=== PATIENT | female | born 1935 | race Caucasian/White ===

== ENCOUNTER 2016-10-31 17:10 | Observation (INO) | payer MEDICARE, OTHER ==
[~2016-10-31] VITALS: Ht 167.6 cm; Wt 58.3 kg
--- NOTE | ~2016-10-31 | HP ---
History And Physical [place] [id number] [facility] [place]. [address] NAME: MONY VILLA : 33 STATUS : ADM Donell PAT#: [id number] AGE: 81 ADM/REG DATE : 10/31/16 MR#: [id number] REPORT SERV DATE: 11/01/16 DICTATED BY: CHRISTIAN TAYLOR DATE: 11/01/16 REPORT STATUS : Draft TRANSCRIBED BY: MODL DATE: 11/01/16 DATE OF ADMISSION: 10/31/2016 ADDENDUM: PAST MEDICAL HISTORY: 1. In addition to the coronary artery disease status post PCI to LAD in 1988, she also has sick sinus syndrome with history of atrial fibrillation and is status post a pacemaker along with a pacemaker battery change. 2. Labile blood pressure. 3. Severe dementia. 4. Recurrent UTIs. Daughter denies any history of congestive heart failure or GI bleed. She denies any history of liver function test elevation or abdominal pathology. REVIEW OF SYSTEMS: All obtained through the [employer], jose Valerie. The patient has been sleeping all day. More confused compared to baseline dementia, possibly hallucinating as the daughter thinks her talks for friend peggy [place]. Feet swelling and coughing. No shortness of breath. No chest pain. No palpitations. No complaints of heart racing per the daughter. The daughter is unsure why the patient was never placed on anticoagulant by her information security manager. She has not seen a information security manager in some time. Her information security manager is Dr. Barraza. The patient is fairly debilitated. As above per HPI, all other systems reviewed and negative. SOCIAL HISTORY: She is . She has three children, two daughters and one son. She has a Power of Production Mechan[employer], daughter Valerie. Other daughter is active as well. She denies any tobacco. She tells me she drinks about one glass of wine a couple of times a month. She tells me she lives alone in her own home. However, her daughter clarified afterwards that [facility] six months [facility] and is living there. She tells me that she is very active and that she is a runner; however, the daughter tells me that she did use to run when she was younger, but does not do any exercise at this time. The patient tells me about her friend King Marcia that brought her into the hospital to be funny. The daughter tells me that she feels that this is unreal and possibly a hallucination. FAMILY HISTORY: Noncontributory secondary to age. ALLERGIES: MORPHINE, UNKNOWN REACTION; CODEINE, UNKNOWN REACTION. HOME MEDICATIONS: List was obtained from the facility. The patient states she does not take any medications. However, per the facility, the patient is receiving the followin. Aspirin 81 mg p.o. every morning. 2. Atorvastatin 40 mg p.o. every evening. 3. Ativan 0.5 mg p.o. twice per day as needed for agitation. 4. Losartan 100 mg p.o. every morning. History And Physical [address] [address] NAME: MONY VILLA : 33 STATUS : ADM Donell PAT#: [id number] AGE: 81 ADM/REG DATE : 10/31/16 MR#: [id number] REPORT SERV DATE: 11/01/16 DICTATED BY: CHRISTIAN TAYLOR DATE: 11/01/16 REPORT STATUS : Draft TRANSCRIBED BY: VALDO DATE: 11/01/16 5. Namenda XR 28 mg p.o. every morning. 6. Lopressor 50 mg p.o. b.i.d. 7. Macrodantin 100 mg p.o. every morning, maintenance preventative therapy given recurrent UTIs per [facility]. 8. Exelon patch 9.5 mg patch applied topically every morning (please note, I see this patches in place on her back at this time. 9. Trazodone 150 mg p.o. at bedtime. PHYSICAL EXAMINATION: VITAL SIGNS: Oxygen saturation 95% on room air. Weight 59.59 kg. Temperature 97.7, pulse 96, respiratory rate 18, and blood pressure 103/62. GENERAL: Well-developed, well-nourished. Agitated. HEENT: Head normocephalic. No xanthelasma. Sclera clear, anicteric. Moist mucous membranes without pallor. No lymphadenopathy. No deficits noted. NECK: Trachea midline. Supple. No thyromegaly, JVD, or bruits. RESPIRATORY: Unlabored respirations. Breath sounds clear bilaterally to posterior auscultation. No wheezes, rhonchi or crackles. CARDIOVASCULAR: Permanent pacemaker noted on the left chest wall. No murmur, rub, or gallop appreciated. Regular rate with irregular rhythm. No chest wall tenderness to palpation. ABDOMEN: Soft, nontender, and nondistended. Active bowel sounds auscultated x4 quadrants. No organomegaly and no masses. No aortic bruit. EXTREMITIES: DP/PT and radial pulses 2+ bilaterally. 1 to 2+ nonpitting edema noted in bilateral lower ankles. SKIN: Warm, dry, intact. No rash. Normal turgor. MUSCULOSKELETAL: Moves all extremities in bed without difficulty. NEURO/PSYCH: The patient is currently agitated. She is oriented to name and date of , otherwise she is disoriented to place, time, the president, where she lives, why she is in the hospital, what activity she normally does, etc. She is unable to provide much medical history. Again, affect is agitated. LABORATORY DATA: BMP: Sodium 139, potassium 4, chloride 107, BUN 26, creatinine 0.87, GFR 71, glucose 89, calcium 8.8, and magnesium 1.7. CBC: WBC 10.3, hemoglobin 16.2, hematocrit 47.8, and platelets 141. INR 1.2. Alkaline phosphatase 194 (elevated), ALT elevated at 102 (was normal at 34, last time checked in October 2014), AST is also elevated at 42. TSH 3.83 with a normal free T4. Troponin is less than 0.02 x2. STUDIES: Chest x-ray; left greater than right bibasilar atelectasis. Small left pleural effusion. Progressive cardiomegaly with a permanent pacemaker in place. EKGs personally interpreted x3; first with atrial fibrillation with RVR with variable AV block with anterolateral ischemia rate of 152 with an incomplete right bundle branch block. The second EKG; atrial fibrillation with frequent V pacing with T-wave inversions anterolateral. Third; V paced rate 82. Telemetry: Atrial fibrillation with frequent ventricular pacing, rate 90s to one teens. The patient is currently being infused with heparin drip and a Cardizem drip. History And Physical [address] [place]. [address] NAME: ALLENMONY LAI : 33 STATUS : ADM Donell PAT#: [id number] AGE: 81 ADM/REG DATE : 10/31/16 MR#: [id number] REPORT SERV DATE: 11/01/16 DICTATED BY: CHRISTIAN TAYLOR DATE: 11/01/16 REPORT STATUS : Draft TRANSCRIBED BY: VALDO DATE: 11/01/16 ASSESSMENT AND PLAN: 1. Altered mental status. The patient's daughter notes that she has had increased lethargy and not responding as well or as appropriately with staff that she has been sleeping all day. At this present time, she is quite awake and agitated. Daughter notes this is in addition to baseline severe dementia. She is afebrile. Mild leukocytosis only. She is on room air. Lungs are clear. Blood pressure is fine. Unclear etiology at the facility. Defer to hospitalist colleagues. Severe dementia with worsening confusion and agitation, unclear etiology, although the daughter reports that this happens with urinary tract infection as the patient has recurrently in fact even on preventative antibiotics due to this. I will continue her home medications which include trazodone, Ativan, Namenda, and Exelon patch. I have checked the urinalysis and await that along with a urine culture, given history of recurrent urinary tract infections and worsening confusion. Otherwise I defer to hospitalist colleagues. 2. Paroxysmal atrial fibrillation with rapid ventricular rate in a patient with known history of atrial fibrillation. I suspect she has a rate control strategy. We will pursue a rate control strategy by adding on Cardizem orally in addition to continuing home metoprolol. We will also provide IV metoprolol as needed. We will interrogate pacemaker which is a [employer] brand. Otherwise, she is to follow up with her information security manager at [facility], Dr. Barraza. The daughter is not sure why she is not on anticoagulation; however, I suspect it is given her comorbidities. CHADS2 is 6 with hypertension, age, gender, and vascular disease, but again I would be concerned that she would be at high risk for falls given current agitated state and underlying severe dementia. She is to follow up with her information security manager with whom she can discuss this further. We will not place her on anticoagulation at this time. 3. History of sick sinus syndrome and atrial fibrillation status post permanent pacemaker. This is noted. 4. Bilateral ankle edema. I will provide Lasix IV x1 and then Lasix 20 daily. Lungs are clear. Otherwise defer to hospitalist colleagues. The patient does not have a history of heart failure. 5. History of recurrent urinary tract infections. She is on preventative antibiotics. I will continue these, and await urinalysis and urine culture. 6. Elevated liver function tests, which were performed yesterday. She denies any abdominal pain, and the daughter denies any history of elevated LFTs or abdominal or liver disease. We will consult the Hospitalist for further evaluation and management. I have discussed this plan with the patient's daughter Valerie, who is the Power of Production [employer], the patient's nurse Marsha, and I have discussed this with rounding information security manager for the [facility] Dr. Finley. After discussion with Dr. Finley, we will transfer the patient to Hospitalist Service. We have initiated rate control strategy for history of atrial fibrillation and with her with RVR at this time. Please reconsult if needed. Otherwise the patient is to follow up with her information security manager. I have discussed this patient's care with the hospitalist who will be seeing her and that is Dr. Hoyos. KL/MODL History And Physical [address] [address] NAME: MONY VILLA : 33 STATUS : ADM Donell PAT#: [id number] AGE: 81 ADM/REG DATE : 10/31/16 MR#: [id number] REPORT SERV DATE: 11/01/16 DICTATED BY: CHRISTIAN TAYLOR DATE: 11/01/16 REPORT STATUS : Draft TRANSCRIBED BY: VALDO DATE: 11/01/16 Christian Taylor NP / [id number] CC: Anita Nye, MSN, CAN SOLDERER-BC FORREST Stauffer M.D.
--- NOTE | ~2016-10-31 | CN ---
Consultation Report [facility] [address] [place]. [address] NAME: MONY VILLA : 33 STATUS : DIS Donell PAT#: [id number] AGE: 81 ADM/REG DATE : 10/31/16 MR#: [id number] REPORT SERV DATE: 11/04/16 DICTATED BY: ARIE TOBIN DATE: 11/01/16 REPORT STATUS : Draft TRANSCRIBED BY: MODL DATE: 11/01/16 MEDICAL CONSULTATION DATE OF CONSULTATION: REASON FOR ADMISSION: Atrial fibrillation with rapid ventricular response. HISTORY OF PRESENT ILLNESS: This is an 81-year-old white female, who is followed by a material scheduler at [facility]. She was evaluated by Caitlyn Taylor this morning and thought she needed to be admitted to the hospitalist program. The patient does have dementia, which is chronic. She is followed by Dr. Martinez at [facility]. He has her on Namenda and rivastigmine patch. She came to the emergency room after she was evaluated by a nurse practitioner in [facility] Katey Clarke. She was seen in the emergency room with atrial fibrillation with rapid ventricular response, started on IV Cardizem. This morning she was seen by nurse practitioner, Caitlyn, working for Dr. Finley who placed her on oral Cardizem. She asked for transfer to the hospital service. On consultation for transfer, however, the patient is at baseline except for the swelling that she had from probably congestive heart failure exacerbated by atrial fibrillation with rapid ventricular response. She does have a pacemaker. Please see cardiology dictation of history and physical for details. PAST MEDICAL HISTORY: She has dementia, atrial fibrillation with rapid ventricular response, and history of pacemaker. HOME MEDICATIONS: Diltiazem CD 120 mg p.o. daily, Lasix 20 mg p.o. daily, potassium 10 mEq p.o. daily, and continue the Namenda ER 28 mg p.o. daily, rivastigmine 9.5 mg patch every morning, metoprolol 50 mg p.o. b.i.d., aspirin 81 mg p.o. daily, atorvastatin 40 mg p.o. each evening, losartan 100 mg p.o. daily, hold the lorazepam until re-evaluation and consider antipsychotics, trazodone 150 mg p.o. at bedtime, and nitrofurantoin may be discontinued as well as the urinalysis is cleared now. Cardiology has given here: Cardizem CD 120 mg p.o. daily, furosemide 20 mg a day, and potassium 20 mEq p.o. daily. SOCIAL HISTORY: The patient was recently transferred to an assisted living facility from her house on [facility]. She is angry about this and is angry about this at her daughter. Her daughter here says that she has been more withdrawn and feeling bad and thought she might have a urinary tract infection. No urinalysis was obtained until ordered this morning by Cardiology, which shows 1 white cell per high-powered field and no bacteria. FAMILY HISTORY: High blood pressure and heart disease run in the family. Consultation Report [address] [place]. [address] NAME: MONY VILLA : 33 STATUS : DIS Donell PAT#: [id number] AGE: 81 ADM/REG DATE : 10/31/16 MR#: [id number] REPORT SERV DATE: 11/04/16 DICTATED BY: ARIE TOBIN DATE: 11/01/16 REPORT STATUS : Draft TRANSCRIBED BY: VALDO DATE: 11/01/16 REVIEW OF SYSTEMS: She has had some swelling of lower extremities recently and perhaps some withdrawal. She had been agitated and has been demanding to have her car keys back but says that she might be able to drive. She does have dementia and that is the reason she was placed in the assisted living facility according to her daughter. She has not been moving as much, sitting more, and perhaps legs have swollen more, change in her diet, perhaps increase in sodium from that as well. The remainder of the review of systems is negative. PHYSICAL EXAMINATION: VITAL SIGNS: Her blood pressure is 136/72 with a heart rate of 86, respiratory rate 18, afebrile. HEENT: EOMI. Sclerae clear. Conjunctivae pink. NECK: No bruit. No JVD. CHEST: Clear bilaterally. HEART: Slightly irregularly irregular. S1, S2. ABDOMEN: Soft, nontender. EXTREMITIES: Have 1 to 2+ pitting edema. There is presacral edema up to the level of the waist. NEUROLOGIC: She withdraws to plantar stimulation. Frame Table Operator Helper is equal and symmetric bilaterally. Coordination is intact. She has no tremor. The patient is alert. She is oriented to the hospital. LABORATORY: Urinalysis shows 1 red cell, 1 white cell per high-powered field, specific gravity of 1.019, pH 5, negative leukocyte esterase, negative nitrite. Troponin less than 0.02. Portable chest x-ray shows generalized greater than right basilar atelectasis. There is a small left pleural effusion, slightly progressed since 2008. The PTT was 122. INR 1.3. Troponin 1 less than 0.02. Comprehensive metabolic profile: Creatinine 1.06, potassium 4.3, albumin 3.1, total protein was 5.8, slightly depressed. Her liver tests showed SGPT of 102, TSH was 3.3, slightly elevated and free T4 is normal at 1.27. The BNP was 499. Creatinine 0.87, BUN 26, sodium 139 on October 31. Hemoglobin was 16, hematocrit 47, platelets 141, white count 10.3, INR is 1.2. ASSESSMENT: 1. Congestive heart failure, likely acute on chronic. She does have a material scheduler, whom she sees already. 2. Distal edema. Cardiology has started on Lasix, I agree with this. 3. Dementia of the Alzheimer's type, followed by Dr. Martinez at [facility]. 4. Chronic atrial fibrillation. There has been no recommendation for anticoagulation from Consultation Report [address] [place]. [address] NAME: MONY VILLA : 33 STATUS : DIS Donell PAT#: [id number] AGE: 81 ADM/REG DATE : 10/31/16 MR#: [id number] REPORT SERV DATE: 11/04/16 DICTATED BY: ARIE TOBIN DATE: 11/01/16 REPORT STATUS : Draft TRANSCRIBED BY: VALDO DATE: 11/01/16 Cardiology yet, but we will defer there attention to this. 5. Possible depression over change in living circumstances, now being in assisted living after discussion with daughter with some lethargy over the last two weeks. PLAN: Starting at the recommendations of Caitlyn nurse practitioner: Lasix 20 mg p.o. daily, potassium chloride 10 mEq p.o. daily in addition to the above medication. I find no reason to continue the patient in the hospital. Her urine is clear. Change in mental status is chronic. She is on lorazepam. This may aggravate agitation and confusion in Alzheimer's patient and perhaps if there are psychotic behavioral abnormalities, an antipsychotic would be better used to help control behavior. She needs to have a BMP done in the next week or two at her primary provider's office and follow up with that. Physical therapy evaluation is being done now for possible home physical therapy support and follow up next week with nurse practitioner as before. DB/MODL Arie Tobin M.D. / [id number] CC: Chapito Miranda NP [facility] SHAI Hernández M.D. Dr. (Dept of Neurology, [facility]) Juan
--- NOTE | ~2016-10-31 | HP ---
History And Physical [place] [id number] [facility] [place]. [address] NAME: MONY DOMINGUEZ : 33 STATUS : ADM Donell PAT#: [id number] AGE: 81 ADM/REG DATE : 10/31/16 MR#: [id number] REPORT SERV DATE: 11/01/16 DICTATED BY: CHRISTIAN TAYLOR DATE: 11/01/16 REPORT STATUS : Draft TRANSCRIBED BY: MODL DATE: 11/01/16 DATE OF ADMISSION: 10/31/2016 PRIMARY CARE PROVIDER: She sees the facility providers at her facility, which is [facility] and yesterday they had her go see [facility] provider Katey Clarke, nurse practitioner had previously seen her at [facility]. CARDIOLOGISTS: Dr. Barraza at [facility] [place]. CHIEF COMPLAINT: Facility and daughter noted worsening confusion, possibly hallucinating, less interactions with staff, sleeping more, on top of existing severe dementia; feet swelling and coughing (chief complaint per ER note fatigue and possible dehydration). HISTORY OF PRESENT ILLNESS: This is an 81-year-old, who is unable to provide any significant past medical history, and so most of the history is obtained by the patient's daughter who is the power of trust and estates attorney (Valerie). She has a history of severe dementia, lives at [facility]. She cannot tell me why she is here. She is very agitated. She believes she lives in her own home on [address], although per daughter she has lived in a facility for six months. She tells me that a friend named King Elisa has driven her to the hospital to be funny and that I want to go home. She tells me she does not take any medication. She tells me she has no complaints except she is tired and mad. According to daughter who later spoke with on the telephone, the patient has been over the past ten days or so becoming more confused, she was not interacting with staff well and sleeping most of the day. Her feet were progressively swelling and she had developed a cough. The patient's daughter states that she often gets this way when she has urinary tract infections. Again, she notes that she is demented at baseline, but that she was more confused than normal. Therefore, the facility brought her to their affiliated primary care provider Katey Clarke, at [facility], who performed lab work in the office, which included an elevated liver function tests. Otherwise, is fairly unremarkable except for mild leukocytosis. She then recommended that the family bring Ms. Dominguez to the emergency room for further evaluation. The daughter says she was told the heart rate was elevated as well in the midst of everything else. The patient has been agitated overnight since arrival. She is extremely angry and difficult to calm. PAST MEDICAL HISTORY: 1. Coronary artery disease, status post PCI of the LAD in 1988. DICTATION ENDS HERE KAREN/VALDO Christian Taylor NP History And Physical [address] [address] NAME: MONY DOMINGUEZ : 33 STATUS : ADM Donell PAT#: [id number] AGE: 81 ADM/REG DATE : 10/31/16 MR#: [id number] REPORT SERV DATE: 11/01/16 DICTATED BY: CHRISTIAN TAYLOR DATE: 11/01/16 REPORT STATUS : Draft TRANSCRIBED BY: VALDO DATE: 11/01/16 / [id number] CC: Anita Nye, MSN, INSURANCE POLICY ISSUE CLERK-BC [facility] NP
[2016-10-31 19:36] LABS: BASOPHILS 0.3 %; BASOPHILS ABSOLUTE 0.03 10/3/uL (0.0-0.16); EOSINOPHILS 1.5 %; EOSINOPHILS ABSOLUTE 0.15 10/3/uL (0.0-0.53); HEMATOCRIT 47.8 % (36.0-48.0); HEMOGLOBIN 16.2 g/dL (12.0-16.0); IMMATURE GRANULOCYTES 0.3 %; IMMATURE GRANULOCYTES ABSOLUTE 0.03 10/3/uL (0.0-0.11); LYMPHOCYTES 14.9 %; LYMPHOCYTES ABSOLUTE 1.53 10/3/uL (0.67-4.30); MEAN CORPUSCULAR HEMOGLOB 30.8 pg (26.0-34.0); MEAN PLATELET VOLUME 10.7 fL (9.2-13.0); MONOCYTES 10.3 %; MONOCYTES ABSOLUTE 1.06 10/3/uL (0.21-1.20); NEUTROPHILS 72.7 %; NEUTROPHILS ABSOLUTE 7.47 10/3/uL (2.02-8.40); RBC DISTRIBUTION WIDTH 14.8 % (12.0-16.0); RED CELL COUNT 5.26 10/6/uL (4.0-5.6)
[2016-10-31 19:39] LABS: ER CBC TAT 0 Hrs 09 Mins; MANUAL DIFF NO %; MEAN CORPUS HGB CONC 33.9 g/dL (32.0-36.0); MEAN CORPUSCULAR VOLUME 90.9 fL (80-100); PLATELET COUNT 141 10/3/uL (150-400); WHITE BLOOD CELLS 10.3 10/3/uL (4.5-10.5)
[2016-10-31 19:46] LABS: INTERNATIONAL NORMAL RATI 1.2 UNITS (-); PARTIAL THROMBO TIME 33.9 SEC (22.5-37.2)
[2016-10-31 19:48] LABS: PROTIME (NOT ORD) 15.2 SEC (12.0-14.5)
[2016-10-31 19:53] LABS: CALCIUM, SERUM 8.8 MG/DL (8.5-10.4); CHEST PAIN PROFILE TAT 0 Hrs 23 Mins; CHLORIDE, SERUM 107 MMOL/L (96-112); CO2 (CARBON DIOXIDE) 25 MMOL/L (24-34); CREATININE 0.87 MG/DL (0.55-1.02); GFR AFRICAN AMERICAN 71 ML/MIN (>=60); GFR NON AFRICAN AMERICAN 62 ML/MIN (>=60); GLUCOSE, SERUM 89 MG/DL (60-99); SODIUM, SERUM 139 MMOL/L (135-148); TROPONIN I <0.02 NG/ML (<0.05)
[2016-10-31 19:54] LABS: BUN (BLOOD UREA NITROGEN) 26 MG/DL (6-23)
[2016-10-31] MEDS ORDERED: EXELON9.5T TOP (21:22)
[2016-10-31] MEDS ORDERED: NAMENXR28 PO (21:22)
[2016-10-31] MEDS ORDERED: LOP50 PO (21:23)
[2016-10-31] MEDS ORDERED: LIPITOR40 PO (21:24)
[2016-10-31] MEDS ORDERED: ASAB PO (21:24)
[2016-10-31] MEDS ORDERED: COZAAR100 MG PO (21:24)
[2016-10-31] MEDS ORDERED: ATV.5 PO (21:25)
[2016-10-31] MEDS ORDERED: TRAZODONE150 MG PO (21:25)
[2016-10-31] MEDS ORDERED: MACRODANTIN 10100 MG PO (21:26)
[2016-10-31 21:55] LABS: CALCIUM, SERUM 8.7 MG/DL (8.5-10.4); CHLORIDE, SERUM 107 MMOL/L (96-112); CREATININE 1.06 MG/DL (0.55-1.02); FREE T4 1.27 NG/DL (0.76-1.46); GFR AFRICAN AMERICAN 56 ML/MIN (>=60); GFR NON AFRICAN AMERICAN 49 ML/MIN (>=60); POTASSIUM, SERUM 4.3 MMOL/L (3.5-5.3); SGPT(ALT) 102 U/L (5-65); SODIUM, SERUM 141 MMOL/L (135-148); TOTAL BILIRUBIN 0.8 MG/DL (0-1.2); TOTAL PROTEIN 5.8 G/DL (6.0-8.5)
[2016-10-31 22:58] LABS: A/G RATIO 1.1 (0.7-1.9); ALBUMIN 3.1 G/DL (3.5-5.0); ALKALINE PHOSPHATASE 194 U/L (45-117); BUN (BLOOD UREA NITROGEN) 29 MG/DL (6-23); CO2 (CARBON DIOXIDE) 22 MMOL/L (24-34); GLOBULIN 2.7 G/DL (2.5-4.1); GLUCOSE, SERUM 114 MG/DL (60-99)
[2016-10-31 23:02] LABS: SGOT(AST) 42 U/L (5-40)
[2016-11-01 07:08] LABS: INTERNATIONAL NORMAL RATI 1.3 UNITS (-); PROTIME (NOT ORD) 16.3 SEC (12.0-14.5)
[2016-11-01 07:11] LABS: PARTIAL THROMBO TIME 122.8 SEC (22.5-37.2)
[2016-11-01 07:23] LABS: TROPONIN I <0.02 NG/ML (<0.05)
[2016-11-01 10:25] LABS: ASCORBIC ACID (UR NOT ORDER) 40 (NEG); BILIRUBIN, URINE NEGATIVE (NEG); KETONE, URINE NEGATIVE (NEG); LEUKOCYTE ESTERASE(NOT OR NEG (NEG); WBC (NOT ORDERED) (RFLEX) 1 (0-5)
[2016-11-01 12:51] LABS: PROCALCITONIN <0.05 ng/mL (<0.5)
[2016-11-01] MEDS ORDERED: L20 PO (13:38)
[2016-11-01] MEDS ORDERED: K-TABS10 MEQ PO (13:39)
[2016-11-01] MEDS ORDERED: CARDIZEM LA120 MG PO (13:41)
== END 2016-11-01 14:58 ==
LOC: ER 17:10 → CDU2 21:37 → CDU1 21:37 → CDU2 22:01
PROVIDERS: Clinical Nurse Specialist; Emergency Medicine; Nurse Practitioner Family
DX: R41.82 Altered mental status, unspecified (principal); I48.0 Paroxysmal atrial fibrillation; I48.2 Chronic atrial fibrillation; R53.83 Other fatigue; R60.0 Localized edema; R94.5 Abnormal results of liver function studies; I50.9 Heart failure, unspecified; G30.9 Alzheimer's disease, unspecified; F02.80 Dementia in other diseases classified elsewhere, unspecified severity, without behavioral disturbance, psychotic disturbance, mood disturbance, and anxiety; I25.10 Atherosclerotic heart disease of native coronary artery without angina pectoris; Z87.440 Personal history of urinary (tract) infections; Z79.899 Other long term (current) drug therapy; Z79.82 Long term (current) use of aspirin; Z88.6 Allergy status to analgesic agent; Z88.5 Allergy status to narcotic agent; Z79.891 Long term (current) use of opiate analgesic
CPT/HCPCS: 71010; 80048; 80053; 81001; 83735; 83880; 84145; 84439; 84443; 84484; 85025; 85610; 85730; 93005; 96372; 96374; 96375; 96376; 97162-GP; 99285; A9270-GY; G0378; G8978-CK-GP; G8979-CJ-GP; J1940